=== PATIENT | female | born 1995 | race Caucasian/White ===

== ENCOUNTER 2022-06-14 11:57 | Emergency (ER) | payer OTHER ==
[2022-06-14 12:22] VITALS: BP 116/73; PULSE 71; RESP 18; TEMP 98; BMI 21.4
[2022-06-14 13:13] LABS: THROAT:GRP A STREP NOT DETECTED (NOTDETECTED)
== END 2022-06-14 13:59 | disposition home or self-care (01) ==
LOC: JER 11:57 → JERFT 11:57
DX: J02.9 Acute pharyngitis, unspecified (principal)
CPT/HCPCS: 0241U-QW; 87651; 99283-25

== ENCOUNTER 2022-07-23 06:09 | Day surgery (SDC) | payer OTHER ==
[2022-07-22 13:37] VITALS: BMI 21.2
[2022-07-23] MEDS ORDERED: SUCCINYLCHOLINE CHLORIDE 200 MG/10 ML SYRINGE ONE (06:57)
[2022-07-23] MEDS ORDERED: KETOROLAC TROMETHAMINE 30 MG/1 ML VIAL ONE (06:57)
[2022-07-23] MEDS ORDERED: MIDAZOLAM HCL 2 MG/2 ML SINGLE DOSE VIAL ONE (06:57)
[2022-07-23] MEDS ORDERED: PROPOFOL 20 ML ONE ×2 (06:57→09:06)
[2022-07-23] MEDS ORDERED: DEXAMETHASONE SOD PHOSPHATE 4 MG/1 ML VIAL ONE (06:57)
[2022-07-23] MEDS ORDERED: ONDANSETRON 4 MG/2 ML VIAL ONE (06:57)
[2022-07-23] MEDS ORDERED: ceFAZolin SODIUM 1 GM VIAL ONE ×2 (06:57)
[2022-07-23] MEDS ORDERED: ONDANSETRON 4 MG/2 ML VIAL IVPUSH PRN (07:03)
[2022-07-23] MEDS ORDERED: oxyCODONE HCL 5 MG TABLET PO PRN (07:03)
[2022-07-23] MEDS ORDERED: ACETAMINOPHEN 325 MG TABLET (FP) PO PRN (07:03)
[2022-07-23] MEDS ORDERED: LACTATED RINGERS SOLUTION 1,000 ML IV SCH (07:15)
[2022-07-23] MEDS ORDERED: BUPIVACAINE HCL/EPINEPHRINE/PF 30 ML VIAL IJ ONE (07:16)
[2022-07-23] MEDS ORDERED: ACETAMINOPHEN INJECTION 100 ML IVPB ONE (07:17)
[2022-07-23] MEDS ORDERED: DEXAMETHASONE SOD PHOSPHATE/PF 10 MG/ML SDV ONE (07:28)
[2022-07-23] MEDS ORDERED: BUPIVACAINE HCL/PF 0.5% (5 MG/ML) 30 ML VIAL IJ ONE (07:28)
[2022-07-23] MEDS ORDERED: TRANEXAMIC ACID 1000 MG/10 ML VIAL ONE (07:50)
[2022-07-23] MEDS ORDERED: ePHEDrine SULFATE 50 MG/1 ML AMPULE ONE (08:15)
[2022-07-23] MEDS ORDERED: BUPIVACAINE 0.25% /EPI 1:200,000 10 ML VIAL INF ONE (09:40)
[2022-07-23 10:51] VITALS: RESP 20
[2022-07-23 11:21] VITALS: BP 118/68; PULSE 84; TEMP 98
== END 2022-07-23 11:20 | disposition home or self-care (01) ==
LOC: FASU 06:09
PROVIDERS: ATTEND Orthopaedic Surgery
PROC: 0YQH0ZZ Repair Right Lower Leg, Open Approach (ICD-10-PCS; 2022-07-23)
PROC: 0SQC4ZZ Repair Right Knee Joint, Percutaneous Endoscopic Approach (ICD-10-PCS; principal; 2022-07-23 08:06)
DX: S83.281A Other tear of lateral meniscus, current injury, right knee, initial encounter (principal); M25.361 Other instability, right knee; X58.XXXA Exposure to other specified factors, initial encounter; Y93.9 Activity, unspecified; Y92.9 Unspecified place or not applicable
CPT/HCPCS: 27427; 29882; C1713; 73560-TC-RT-FY; 94760

== ENCOUNTER 2024-02-26 04:07 | Inpatient (IN) | payer OTHER ==
[2024-02-26 05:25] VITALS: BMI 26.4
[2024-02-26] MEDS: ELECTROLYTE-148 SOLN 1,000 ML IV SCH (05:32)
[2024-02-26 05:47] LABS: BASO % 0.4 % (0-2.0); EOS % 0.9 % (0-4.5); HEMATOCRIT 36.5 % (32.4-45.2); HEMOGLOBIN 12.3 GM/dL (10.7-15.3); LYMPH % 32.5 % (8-40); MCHC 33.8 g/dl (32.0-36.0); MEAN CELL VOLUME 88.7 fl (80-96); MEAN PLT VOLUME 11.7 fl (7.5-11.1); MONO % 5.5 % (3.8-10.2); NEUT % 60.7 % (42.8-82.8); PLATELET COUNT 102 10^3/uL (134-434); RBC 4.11 M/mm3 (3.60-5.2); RDW 13.4 % (11.6-15.6); WHITE BLOOD COUNT 9.6 K/mm3 (4.0-10.0)
[2024-02-26 05:54] LABS: INR 0.89 (0.83-1.09); PROTHROMBIN TIME (PATIENT) 10.1 SEC (9.7-13.0)
[2024-02-26 06:18] LABS: CALCIUM 8.8 mg/dL (8.5-10.1)
[2024-02-26 06:19] LABS: BLOOD UREA NITROGEN 8.1 mg/dL (7-18)
[2024-02-26] MEDS ORDERED: FENTANYL/BUPIVACAINE/NS/PF - PCEA - 50 ML DISP.SYRIN EP ONE ×3 (06:20→14:13)
[2024-02-26] MEDS: FENTANYL/BUPIVACAINE/NS/PF - PCEA - 50 ML DISP.SYRIN EP SCH ×2 (06:54→09:23)
[2024-02-26] MEDS ORDERED: OXYTOCIN 30 UNITS in 0.9% NS 30 UNIT/500 ML INFUS.BAG IVPB ONE (07:05)
[2024-02-26] MEDS: OXYTOCIN 30 UNITS in 0.9% NS 30 UNIT/500 ML INFUS.BAG IVPB SCH (07:15)
[2024-02-26] MEDS ORDERED: NALOXONE HCL 0.4 MG/ML VIAL IVPUSH PRN (08:59)
[2024-02-26] MEDS ORDERED: BUPIVACAINE HCL/PF 0.25% (2.5MG/ML) 10 ML VIAL ONE ×2 (10:48→11:18)
[2024-02-26] MEDS ORDERED: OXYTOCIN 20 UNITS in 0.9% NS 20 UNIT/1,000 ML INFUS.BAG IV ONE (15:32)
[2024-02-26] MEDS ORDERED: LIDOCAINE HCL 1% PRESERVATIVE FREE - 30ML VIAL ONE (16:06)
[2024-02-26 17:03] LABS: CORD BASE EXCESS -8.3 mmol/L (0-2); CORD HCO3 17.3 mmHg (20-29); CORD PCO2 36.7 mmHg (30-78); CORD pH 7.292 (7.14-7.44)
[2024-02-26 17:04] LABS: CORD BASE EXCESS -9.1 mmol/L (0-2); CORD HCO3 20.3 mmHg (20-29); CORD pH 7.169 (7.14-7.44)
[2024-02-26] MEDS ORDERED: oxyCODONE HCL 5 MG TABLET PO PRN (17:05)
[2024-02-26] MEDS ORDERED: IBUPROFEN 600 MG TABLET (FP) PO PRN (17:05)
[2024-02-26] MEDS ORDERED: BENZOCAINE 28 GM HEMORRHOIDAL OINTMENT TP PRN (17:05)
[2024-02-26] MEDS ORDERED: METHYLERGONOVINE MALEATE 0.2 MG/1 ML AMP IM PRN (17:05)
[2024-02-26] MEDS ORDERED: WITCH HAZEL 50% (TUCKS) 40 PAD/JAR PAD TP PRN (17:05)
[2024-02-26] MEDS ORDERED: BISACODYL 10 MG SUPP.RECT RC PRN (17:05)
[2024-02-26] MEDS: OXYTOCIN 20 UNITS in 0.9% NS 20 UNIT/1,000 ML INFUS.BAG IV SCH (17:15)
[2024-02-26 18:33] LABS: BASO % 0.1 % (0-2.0); HEMATOCRIT 30.7 % (32.4-45.2); LYMPH % 5.1 % (8-40); MCH 29.3 pg (25.7-33.7); MCHC 32.7 g/dl (32.0-36.0); MEAN CELL VOLUME 89.7 fl (80-96); MEAN PLT VOLUME 11.2 fl (7.5-11.1); MONO % 4.6 % (3.8-10.2); NEUT % 90.2 % (42.8-82.8); PLATELET COUNT 84 10^3/uL (134-434); RBC 3.43 M/mm3 (3.60-5.2); RDW 13.7 % (11.6-15.6); WHITE BLOOD COUNT 14.8 K/mm3 (4.0-10.0)
[2024-02-26 22:41] VITALS: RESP 18
[2024-02-27] MEDS: ACETAMINOPHEN 325 MG TABLET (FP) PO PRN (01:02)
[2024-02-27] MEDS: BENZOCAINE 20% 57 GM BOTTLE TP PRN (01:02)
[2024-02-27 07:22] LABS: BASO % 0.5 % (0-2.0); EOS % 0.3 % (0-4.5); HEMOGLOBIN 10.8 GM/dL (10.7-15.3); LYMPH % 16.9 % (8-40); MCH 29.7 pg (25.7-33.7); MCHC 32.8 g/dl (32.0-36.0); MEAN CELL VOLUME 90.6 fl (80-96); MEAN PLT VOLUME 11.4 fl (7.5-11.1); NEUT % 77.3 % (42.8-82.8); PLATELET COUNT 101 10^3/uL (134-434); RBC 3.65 M/mm3 (3.60-5.2); RDW 13.4 % (11.6-15.6); WHITE BLOOD COUNT 17.8 K/mm3 (4.0-10.0)
[2024-02-27] MEDS: DIPHTH,PERTUSS(ACELL),TET 0.5 ML DISP.SYRIN IM ONE (13:28)
[2024-02-28] MEDS: SENNOSIDES/DOCUSATE COMBO (SENNA PLUS) TABLET (UD) PO PRN (09:50)
[2024-02-28 10:00] VITALS: BP 111/75; PULSE 65; TEMP 98.2
[2024-03-02 13:30] LABS: POC NITRAZINE POS
== END 2024-02-28 12:25 | disposition home or self-care (01) | DRG 807 ==
LOC: JDEL 04:07 → JLDR 04:45 → J3W 20:22
PROVIDERS: ADMIT Obstetrics & Gynecology; ATTEND Obstetrics & Gynecology
PROC: 0W8NXZZ Division of Female Perineum, External Approach (ICD-10-PCS; principal; 2024-02-26)
PROC: 10E0XZZ Delivery of Products of Conception, External Approach (ICD-10-PCS; 2024-02-26)
DX: O99.12 Other diseases of the blood and blood-forming organs and certain disorders involving the immune mechanism complicating childbirth (principal); Z37.0 Single live birth; D69.6 Thrombocytopenia, unspecified; O69.81X0 Labor and delivery complicated by cord around neck, without compression, not applicable or unspecified; Z3A.39 39 weeks gestation of pregnancy
CPT/HCPCS: 36415; 36600; 59025; 59409; 80048; 82803; 83986-QW; 85025; 85610; 85730; 86780; 86850; 86900; 86901; 90715